=== PATIENT | male | born 1950 | race Caucasian/White ===

== ENCOUNTER 2025-02-22 18:49 | Emergency (ER) | payer MEDICARE ==
[~2025-02-22] VITALS: Ht 170.2 cm; Wt 86.2 kg
[2025-02-22 18:50] VITALS: BP 116/70; TEMP 98.3
[2025-02-23 05:14] VITALS: O2SAT 97
== END 2025-02-23 05:15 | disposition home or self-care (01) ==
LOC: ER 19:07
DX: F10.120 Alcohol abuse with intoxication, uncomplicated (principal); Z79.899 Other long term (current) drug therapy; Y90.9 Presence of alcohol in blood, level not specified
CPT/HCPCS: 82962-TC

== ENCOUNTER 2025-04-22 21:50 | Inpatient (IN) | payer MEDICARE, MEDICAID ==
[~2025-04-22] VITALS: Ht 172.7 cm; Wt 86.2 kg
[~2025-04-22 21:50] MED LIST: SULF1TAB48 PO
[2025-04-22] MEDS ORDERED: CEFTRIAXONE 1GM BAG (ER ONLY) 50 ML IV ONE (22:28)
[2025-04-22] MEDS ORDERED: IBUPROFEN 600 MG TABLET ONE (22:29)
[2025-04-22] MEDS: IV NS 0.9% 1,000 ML BAG IV ONE (22:38)
[2025-04-22] MEDS: IBUPROFEN 600 MG TABLET PO ONE (22:38)
[2025-04-22] MEDS: CEFTRIAXONE 1GM BAG (ER ONLY) 50 ML IV ONE (22:38)
[2025-04-22 22:52] LABS: PLATELET COUNT (AUTO) 291 K/uL (150-450); RED BLOOD CELL COUNT(AUTO) 2.80 MIL/uL (4.5-6.0); RED CELL DISTRIBUTION WIDTH 14.4 % (11.5-15.0); WHITE BLOOD COUNT (AUTO) 7.8 K/uL (4.3-11.0)
[2025-04-22 23:00] LABS: APPEARANCE,URINE CLEAR (CLEAR); BLOOD, URINE NEGATIVE Ery/uL (NEGATIVE); LEUKOCYTE ESTERASE ,URINE TRACE (NEGATIVE); NITRITE, URINE NEGATIVE (NEGATIVE); UGLUCOSE NEGATIVE (NEGATIVE)
[2025-04-22 23:01] LABS: CALCIUM, SERUM 8.6 mg/dL (8.5-10.1); CREATININE 1.4 mg/dL (0.6-1.3); SODIUM SERUM 136 mmol/L (136-145); UREA NITROGEN, BLOOD 9 mg/dL (7-18)
[2025-04-22 23:06] LABS: ASPARTATE AMINOTRANSFERASE 10 U/L (15-37); INR 0.99 (0.91-1.10); TOTAL PROTEIN, SERUM 7.3 g/dL (6.4-8.2)
[2025-04-22 23:12] LABS: LACTIC ACID 2.7 mmol/L (0.4-2.0)
[2025-04-22 23:13] LABS: ADD URINE CULTURE NO; SQUAMOUS EPITHELIAL CELL,UR Rare /HPF (None Seen)
[2025-04-23 01:57] LABS: NT-PRO BNP 2156.0 pg/mL (0-125)
[2025-04-23 01:59] LABS: LACTIC ACID 1.0 mmol/L (0.4-2.0)
[2025-04-23] MEDS ORDERED: ACETAMINOPHEN 325 MG TABLET PO PRN (03:30)
[2025-04-23] MEDS ORDERED: ZOLPIDEM TARTRATE 5 MG TABLET PO PRN (03:30)
[2025-04-23] MEDS ORDERED: ONDANSETRON HCL/PF 4 MG/2 ML VIAL IVP PRN (03:30)
[2025-04-23] MEDS ORDERED: MAG HYDROX/AL HYDROX/SIMETH 30 ML UDC PO PRN (03:30)
[2025-04-23] MEDS ORDERED: MAGNESIUM HYDROXIDE 30 ML UDC PO PRN (03:30)
[2025-04-23] MEDS ORDERED: Z GUARD REMEDY 4 OZ OINT TP PRN (03:30)
[2025-04-23] MEDS ORDERED: ENOXAPARIN SODIUM 30 MG/0.3 ML DISP.SYRIN ONE (03:36)
[2025-04-23] MEDS: ENOXAPARIN SODIUM 30 MG/0.3 ML DISP.SYRIN SQ SCH (03:37)
[2025-04-23 04:00] VITALS: BP 108/51; TEMP 98.2; O2SAT 98
[2025-04-23] MEDS ORDERED: LISI10TA29 PO (07:45)
[2025-04-23] MEDS ORDERED: METO25TA4 PO (07:45)
[2025-04-23] MEDS ORDERED: ASPI-1420 PO (07:45)
[2025-04-23] MEDS ORDERED: FOLIC ACID PO (07:45)
[2025-04-23] MEDS ORDERED: ATOR20TA PO (07:45)
[2025-04-23 08:00] VITALS: BP 111/64; TEMP 98.1; O2SAT 96
[2025-04-23] MEDS: PANTOPRAZOLE 40 MG TABLET.DR PO SCH (08:19)
[2025-04-23] MEDS: METOPROLOL SUCCINATE 25 MG TAB.SR.24H PO SCH (14:30)
[2025-04-23] MEDS: LISINOPRIL (10MG) 10 MG TABLET PO SCH (14:30)
[2025-04-23] MEDS ORDERED: MULT-594 PO (14:32)
[2025-04-23] MEDS ORDERED: VITAMIN B1 PO (14:32)
[2025-04-23] MEDS ORDERED: VITAMIN C PO (14:32)
[2025-04-23] MEDS: THIAMINE HCL 100 MG TABLET PO SCH (14:34)
[2025-04-23] MEDS: ASPIRIN EC 81 MG TABLET.DR PO SCH (14:34)
[2025-04-23] MEDS: MULTIVIT W/MINERALS 1 TAB TABLET PO SCH (14:34)
[2025-04-23] MEDS: FOLIC ACID 1 MG TABLET PO SCH (14:34)
[2025-04-23] MEDS ORDERED: MAGN400T52 PO (14:50)
[2025-04-23 15:43] LABS: PLATELET COUNT (AUTO) 228 K/uL (150-450); RED BLOOD CELL COUNT(AUTO) 2.70 MIL/uL (4.5-6.0); RED CELL DISTRIBUTION WIDTH 14.6 % (11.5-15.0); WHITE BLOOD COUNT (AUTO) 8.1 K/uL (4.3-11.0)
[2025-04-23 15:57] LABS: CALCIUM, SERUM 8.4 mg/dL (8.5-10.1); CREATININE 1.5 mg/dL (0.6-1.3); SODIUM SERUM 137.0 mmol/L (136-145); UREA NITROGEN, BLOOD 12.0 mg/dL (7-18)
[2025-04-23 16:00] VITALS: BP 105/68; TEMP 98.1; O2SAT 93
[2025-04-23 20:00] VITALS: BP 110/54; TEMP 98.2; O2SAT 99
[2025-04-23] MEDS: ENOXAPARIN SODIUM 40 MG/0.4 ML DISP.SYRIN SQ SCH (20:28)
[2025-04-23] MEDS: MAGNESIUM OXIDE 400 MG TABLET PO SCH (21:11)
[2025-04-23] MEDS: ATORVASTATIN 10 MG TABLET PO SCH (21:11)
[2025-04-23] MEDS: CEFTRIAXONE 1 G in IV D5W 50 ML IV SCH (21:11)
[2025-04-24] VITALS: BP_SYST 101; BP_SYST 107; BP_DIAS 52; TEMP 98.2; O2SAT 96
[2025-04-24 01:07] LABS: CREATININE, URINE 92.2 MG/DL (30.0-125.0); URINE SODIUM, RANDOM 37.0 mmol/l (40-220); URINE TOTAL PROTEIN 11.8 mg/dL (0-11.9)
[2025-04-24 04:00] VITALS: BP 129/61; TEMP 98.4; O2SAT 97
[2025-04-24 07:25] LABS: PLATELET COUNT (AUTO) 290 K/uL (150-450); RED BLOOD CELL COUNT(AUTO) 2.60 MIL/uL (4.5-6.0); RED CELL DISTRIBUTION WIDTH 14.4 % (11.5-15.0); WHITE BLOOD COUNT (AUTO) 6.2 K/uL (4.3-11.0)
[2025-04-24 07:38] LABS: CALCIUM, SERUM 8.7 mg/dL (8.5-10.1); CREATININE 1.2 mg/dL (0.6-1.3); PHOSPHORUS 4.0 mg/dL (2.5-4.9); SODIUM SERUM 141.0 mmol/L (136-145); UREA NITROGEN, BLOOD 9.0 mg/dL (7-18)
[2025-04-24 08:22] VITALS: BP 156/66; TEMP 98.2; O2SAT 97
[2025-04-24 16:10] VITALS: BP 116/71; TEMP 97.9; O2SAT 94
[2025-04-24 16:11] VITALS: BP 98/58; TEMP 98.4; O2SAT 98
[2025-04-24 20:40] VITALS: BP 115/51; TEMP 98.1; O2SAT 97
[2025-04-25 00:45] VITALS: BP 123/64; TEMP 97.9; O2SAT 96
[2025-04-25 05:37] VITALS: BP 135/67; TEMP 97.9; O2SAT 97
[2025-04-25 07:05] LABS: CALCIUM, SERUM 8.6 mg/dL (8.5-10.1); CREATININE 1.1 mg/dL (0.6-1.3); PHOSPHORUS 4.2 mg/dL (2.5-4.9); SODIUM SERUM 141.0 mmol/L (136-145); UREA NITROGEN, BLOOD 8.0 mg/dL (7-18)
[2025-04-25 07:23] LABS: PLATELET COUNT (AUTO) 291 K/uL (150-450); RED BLOOD CELL COUNT(AUTO) 2.66 MIL/uL (4.5-6.0); RED CELL DISTRIBUTION WIDTH 14.1 % (11.5-15.0); WHITE BLOOD COUNT (AUTO) 6.3 K/uL (4.3-11.0)
[2025-04-25 08:00] VITALS: BP 122/61; TEMP 97.9; O2SAT 98
[2025-04-25 08:16] VITALS: BP 122/61
[2025-04-25] MEDS: MAGNESIUM OXIDE 400 MG TABLET PO ONE (10:33)
[2025-04-25] MEDS ORDERED: CIPR500T5 PO (11:14)
== END 2025-04-25 15:30 | disposition home or self-care (01) | DRG 871 ==
LOC: ER 21:55 → TELE 04-23 00:11
PROVIDERS: ADMIT Nurse Practitioner Acute Care; ATTEND Nurse Practitioner Acute Care
DX: A41.9 Sepsis, unspecified organism (principal); N17.0 Acute kidney failure with tubular necrosis; D68.59 Other primary thrombophilia; N41.0 Acute prostatitis; E87.20 Acidosis, unspecified; K62.89 Other specified diseases of anus and rectum; I25.10 Atherosclerotic heart disease of native coronary artery without angina pectoris; Z20.822 Contact with and (suspected) exposure to COVID-19; N40.0 Benign prostatic hyperplasia without lower urinary tract symptoms; M89.8X9 Other specified disorders of bone, unspecified site; F10.11 Alcohol abuse, in remission; Z95.1 Presence of aortocoronary bypass graft; Z79.899 Other long term (current) drug therapy; Z79.82 Long term (current) use of aspirin; E66.01 Morbid (severe) obesity due to excess calories; E11.9 Type 2 diabetes mellitus without complications; D64.9 Anemia, unspecified; E78.5 Hyperlipidemia, unspecified; I10 Essential (primary) hypertension; Z68.28 Body mass index [BMI] 28.0-28.9, adult
CPT/HCPCS: 36415; 71045-TC; 80048-TC; 80076-TC; 81001; 82570-TC; 83605-TC; 83735-TC; 83880; 84100-TC; 84300-TC; 84443-TC; 84484-TC; 85025-TC; 85730-TC; 87040-TC; 87081-TC; 87086-TC; 93307-TC; A4223; G0378; J0696; J1650; J7050; J7060